=== PATIENT | male | born 1955 | race Caucasian/White ===

== ENCOUNTER → 2019-06-22 | Outpatient (CLI) | payer OTHER ==
--- NOTE | 2019-06-22 16:53 | KCIC ---
MRI of the lumbar spine without contrast 06/22/2019 CLINICAL HISTORY: Low back pain with right leg numbness TECHNIQUE: Unenhanced T1-weighted and T2-weighted sagittal and axial and inversion recovery sagittal images of the lumbar spine were obtained. FINDINGS: Mild S-shaped curvature of the thoracolumbar spine is seen. Degenerative signal changes and loss of height are seen involving all of the disks of the lumbar spine. Degenerative signal changes are seen within the marrow surrounding these discs. The conus medullaris is normal morphology, position, and signal characteristics. At the L1-2 disc space there is a mild generalized disc bulge. Degenerative changes are seen involving the facet joints bilaterally. There is mild ligamentum flavum hypertrophy bilaterally. These findings when combined do not result in significant central spinal canal or neural foraminal stenosis. At the L2-3 disc space there is a mild to moderate generalized disc bulge. Degenerative changes are seen involving the facet joints bilaterally. There are small facet joint effusions bilaterally. There is mild ligamentum flavum hypertrophy bilaterally. These findings when combined result in mild central spinal canal stenosis. Mild left neural foraminal stenosis is seen. The right neural foramen is patent. At the L3-4 disc space there is a mild to moderate generalized disc bulge. Degenerative changes are seen involving the facet joints bilaterally. There are small facet joint effusions bilaterally. There is mild ligamentum flavum hypertrophy bilaterally. These findings when combined result in mild central spinal canal stenosis. Mild to moderate left greater than right neural foraminal stenosis is seen. At the L4-5 disc space there is a mild to moderate generalized disc bulge. This is eccentric to the right. Degenerative changes are seen involving the facet joints bilaterally. There is mild ligamentum flavum hypertrophy bilaterally. These findings when combined do not result in significant central spinal canal stenosis. Moderate to severe right greater than left neural foraminal stenosis is seen. At the L5-S1 disc space there is a mild to moderate generalized disc bulge. Degenerative changes are seen involving the facet joints bilaterally. These findings when combined do not result in significant central spinal canal stenosis. Moderate bilateral neural foraminal stenosis is seen. IMPRESSION: The changes of degenerative disc disease are seen throughout the lumbar spine. These findings result in mild central spinal canal stenosis at L2-3 and L3-4. Mild left neural foraminal stenosis is seen at L2-3. Mild to moderate left greater than right neural foraminal stenosis is seen at L3-4. Moderate bilateral neural foraminal stenosis is seen at L5-S1. Moderate to severe right greater than left neural foraminal stenosis is seen at L4-5. Electronically signed by: Khris Villalobos MD (06/22/2019 4:50 PM) [facility]
== END | disposition home or self-care (01) ==
LOC: KCIC MRI 15:48
PROVIDERS: ATTEND Physician Assistant Medical
DX: M51.36 Other intervertebral disc degeneration, lumbar region (principal); M48.07 Spinal stenosis, lumbosacral region; M51.27 Other intervertebral disc displacement, lumbosacral region; M89.38 Hypertrophy of bone, other site; M25.48 Effusion, other site; M43.8X5 Other specified deforming dorsopathies, thoracolumbar region
CPT/HCPCS: 72148

== ENCOUNTER → 2019-10-28 | Outpatient (CLI) | payer OTHER ==
[~2019-10-28] MED LIST: CELE200C PO; CYCL10TA2 PO; HYDR-2763 PO; SIMV20TA18 PO; TAMS0.4C97 PO
--- NOTE | 2019-10-28 12:51 | PAIN ---
DATE OF SERVICE: 10/28/2019 INITIAL CONSULTATION FOR PAIN CLINIC CHIEF COMPLAINT: Low back and right lower extremity pain. HISTORY OF PRESENT ILLNESS: This is a 64-year-old male, who presents with history of pain for about 9 months, not a result of any specific injury or action he is aware of. The pain in the low back, right lower extremity, posterior gluteus, posterolateral thigh, lateral anterior thigh, anterior medial thigh, medial lower leg and calf on the right side only, radiating into the lower extremity. The patient reports it is worse with walking, standing, changing positions, better with sitting, but does awaken him from sleep frequently. The patient reports he is losing his appetite because of the pain. The pain is described as constant, sharp, stabbing, shooting in the right lower extremity, radiating, tingling with numbness and getting worse with time. The patient has done physical therapy in the past and has been doing exercise stretches and strengthening exercises on his own currently. He has had some chiropractic treatment in the past as well, but nothing recently. The patient is still doing exercises, stretching and using heat applications and reports all he can generally do now is to lie at home with a heating pad on his back and stretch his legs and stretching forward. If he walks even more than 5 minutes, the pain is excruciating, he has to stop because of the radiating pain in the right lower extremity. The patient reports he is not using any assistive devices, but he has to stop frequently and stretch, reaching down to touch his toes with his hands, which will allow him to go a little bit further, but again every few minutes, he has to stop and do this. The patient reports no bowel or bladder incontinence. Rates his disability rating from 0-10, 10 being the worst, is a 10 in all categories, family home responsibilities, recreation, social activity, sexual behavior, occupation, self-care and life support activities. The patient has tried hydrocodone, which does decrease the pain to a moderate extent, but has been out for about 2 months. The patient had MRI scan of the lumbar spine showing degenerative disk disease throughout the lumbar spine with mild central spinal canal stenosis at L2-L3 and L3-L4, [id number] right greater than left neural foraminal stenosis at L4-L5, and moderate bilateral neural foraminal stenosis at L5-S1. The patient reports no loss of motor function, but significant fatigability of the right lower extremity with ambulation. PAST MEDICAL HISTORY: Significant for hearing loss, chemotherapy secondary to bladder cancer in 2014, also surgical resection, history of bradycardia, hyperlipidemia, arthritis. PREVIOUS SURGERIES: Include left inguinal hernia repair, bladder surgery excision in 2014, fractured wrist, right and left knee scopes, ear surgery and left rotator cuff repair as well. CURRENT MEDICATIONS: The patient does not currently take any prescription medications. ALLERGIES: The patient has no known drug allergies. FAMILY HISTORY: Significant for no major medical problems or conditions he is aware of. SOCIAL HISTORY: The patient does not drink alcohol. Does smoke, less than 1 pack a day for the past 30 years. Does not use any illegal, illicit or recreational drugs. He is single. Lives locally in [place], [place]. 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 REVIEW OF SYSTEMS: The patient's review of systems is positive for those items mentioned in history of present illness. All systems reviewed and otherwise negative. It is complete, full and well documented on the patient's chart. PHYSICAL EXAMINATION: VITAL SIGNS: The patient's blood pressure is 150/65, pulse 55, respirations 16, temperature is 97.9 degrees Fahrenheit, height is 6 feet 3 inches and weighs 205 pounds. GENERAL: The patient is awake, alert, oriented, appropriate, has very pleasant demeanor. HEENT: Shows normocephalic, atraumatic. Extraocular movements are intact and symmetrical. Oral cavity has mucous membranes moist and pink. Dentition is intact. NECK: Shows anterior throat supple without palpable lymphadenopathy noted. Swallow reflex symmetrical. CHEST: Shows normal on inspection. Breath sounds are clear bilaterally. HEART: Shows S1, S2 clear. No murmurs auscultated. ABDOMEN: Soft, nontender, nondistended. No palpable organomegaly is noted. No rebound or guarding demonstrated. BACK: Shows spine grossly in the midline. Normal-appearing thoracic kyphosis and lumbar lordotic curvature. Lumbar paraspinous muscle shows symmetrical on inspection, on palpation shows some moderate tenderness diffusely bilaterally, going diffusely without significant radiation. EXTREMITIES: The patient's lower extremities show deep tendon reflexes at 2+ patellar, 1+ tendo-calcaneus tendons are equal. Motor exam is approximately 4 on a scale of 5 dorsiflexion, extension, quadriceps and hamstring flexion on the right, 5/5 on the left. Peripheral pulses are 1+ posterior tibial bilaterally. No peripheral edema is noted bilaterally. Lower extremities are warm and dry to the touch, equal in color and appearance. Straight leg raise noted to be positive on the right at about 35 degrees. Left side is negative. Gaenslen and Deven maneuvers are negative bilaterally. The patient is able to stand, but has some difficulty getting seated from a standing position, he uses the arm of the chair to support himself. He is walking with a significant limping gait favoring the right lower extremity, again not use any assistive devices to ambulate. SKIN: Shows warm and dry, good turgor. No edema. No sores, rashes, or bruising throughout. IMPRESSION: 1. This is a 64-year-old male with approximate 9-month history of increasing pain in low back, right lower extremity in a radicular fashion following in L4-L5 dermatomal distribution on the right side. 2. MRI scan of the lumbar spine as noted. 3. Arthritis. 4. History of bladder cancer. PLAN: Options were discussed with the patient, including conservative medical managements, continued therapies, interventional techniques. He would like to pursue interventional techniques. We discussed a lumbar epidural steroid injection using description as well as anatomical models to describe the procedure. The patient will wait for preauthorization with insurance provider. In the meantime, we will continue doing his physical therapy exercises on his own, heat application, stretching and strengthening exercises and we will give the patient a prescription for hydrocodone 7.5 mg 30 tablets with instructions and side effects to be aware of discussed as well. The patient will follow up; after preauthorization, we will plan on lumbar epidural steroid injection, translaminar approach at the L4-L5 level at that time. KATERINE FREITAS MD DR: CLIVE/scotty JOB#: [id number] / [id number] TETO Valverde
== END | disposition home or self-care (01) ==
LOC: PNCL 10:56
PROVIDERS: ATTEND Anesthesiology
DX: M19.90 Unspecified osteoarthritis, unspecified site (principal); M54.5 Low back pain; Z85.51 Personal history of malignant neoplasm of bladder
CPT/HCPCS: G0463-25

== ENCOUNTER → 2019-11-04 | Outpatient (CLI) | payer OTHER ==
[~2019-11-04] MED LIST changes: +IOHEXOL 180 MG/ML 10 ML VIAL. ONE; +methylPREDNISolone ACETATE 40 MG/ML VIAL. ONE; +methylPREDNISolone ACETATE 80 MG/ML VIAL. ONE
--- NOTE | 2019-11-04 10:48 | PAIN ---
DATE OF SERVICE: 11/04/2019 PROGRESS NOTE FOR PAIN CLINIC DIAGNOSES: Lumbar radiculopathy with lumbar degenerative disk disease. HISTORY OF PRESENT ILLNESS: The patient is a 64-year-old male who returns for followup status post initial evaluation and preauthorization for lumbar epidural steroid injection. The patient reports still significant pain in the low back, right lower extremity as it was previously. No significant changes. The patient reports it is in the posterior gluteus, lateral thigh, anterior thigh, medial thigh, medial lower leg. The patient reports it is 10 on a scale of 10 at its worst over the past week, 10 on average and a 6 at its least and is a 10 today. The patient reports it is stabbing and sharp, unbearable at times, worse with walking, standing, wakes him from sleep about every 6 hours. The patient reports no new motor or sensory deficits, no new bowel or bladder incontinence, still significant pain in the lower extremity on right and in the low back. The patient reports no new changes. PHYSICAL EXAMINATION: VITAL SIGNS: The patient's blood pressure 149/95, pulse is 78, respirations are 18, temperature is 98.0 degrees Fahrenheit, height is 6 feet 3 inches, and weight is 206 pounds. GENERAL: The patient is awake, alert, oriented, appropriate, very pleasant demeanor. HEENT: Shows normocephalic, atraumatic. Extraocular movements are intact and symmetrical. Oral cavity shows mucous membranes moist and pink. Dentition is intact. NECK: Shows anterior throat supple without palpable lymphadenopathy noted. Swallow reflex symmetrical. CHEST: Shows normal on inspection. Breath sounds are clear bilaterally. HEART: Shows S1, S2 clear. ABDOMEN: Soft, nontender, nondistended. No palpable organomegaly is noted. No rebound or guarding demonstrated. BACK: Shows spine grossly in the midline. Normal appearing thoracic kyphosis and lumbar lordotic curvature. Lumbar paraspinous muscle shows symmetrical on inspection, on palpation shows some moderate tenderness diffusely bilaterally going diffusely without significant radiation. The patient has good rotational motion of lumbar spine without difficulty. EXTREMITIES: Lower extremities show deep tendon reflexes 2+ in the patellar, 1+ tendo-calcaneus tendons. Motor exam is approximately 4 on a scale of 5 on the right with dorsiflexion and extension, 5/5 on the left. Peripheral pulses are 1+ posterior tibia. No peripheral edema is noted. Options were discussed with the patient. The patient's old chart was reviewed as his current medication regimen updated. Current review of systems updated today as well. We will proceed with a lumbar epidural steroid injection today with fluoroscopic guidance. Risks were again discussed including, but not limited to bleeding, infection, possibility of epidural hematoma, subsequent neurological compromise, dural puncture, headaches, spinal cord and/or nerve damage, side effects of steroid medication and poor results regarding pain control. The patient understands and wished to proceed. The patient will return to clinic in approximately 2 weeks for followup. He was counseled on return appointment, activity level and side effects to be aware of. PROCEDURE: Lumbar epidural steroid injection under sterile prep and drape using local anesthetic at the L4-L5 level using C-arm fluoroscopic guidance. MEDICATION INJECTED: A total of 120 mg Depo-Medrol plus 10 mL of preservative-free normal saline and 2 mL of contrast. CONDITION AT DISCHARGE: Stable. The patient tolerated the procedure well, had no complications. KATERINE FREITAS MD DR: CLIVE/scotty JOB#: [id number] / [id number]
== END ==
LOC: PNCL 10:04
PROVIDERS: ATTEND Anesthesiology
DX: M51.16 Intervertebral disc disorders with radiculopathy, lumbar region (principal)
CPT/HCPCS: 62323; J1030; J1040; Q9965

== ENCOUNTER → 2019-11-18 | Outpatient (CLI) | payer OTHER ==
[~2019-11-18] MED LIST changes: -IOHEXOL 180 MG/ML 10 ML VIAL. ONE; -methylPREDNISolone ACETATE 40 MG/ML VIAL. ONE; -methylPREDNISolone ACETATE 80 MG/ML VIAL. ONE
--- NOTE | 2019-11-18 13:18 | PAIN ---
DATE OF SERVICE: PROGRESS NOTE FOR PAIN CLINIC DIAGNOSES: Lumbar radiculopathy, lumbar degenerative disk disease. HISTORY OF PRESENT ILLNESS: The patient is a 64-year-old male who returns for followup status post lumbar epidural steroid injection x 1. The patient reports about 75% improvement initially for the first 3 weeks or so. The patient reports the pain has been much decreased and doing quite a bit better over the past few days; however, the pain is beginning to return in the low back and the right lower extremity. The patient reports the sharp pain is completely gone. He is feeling much better from that, but the pain is still radiating into the right lower extremity, mostly in the posterior gluteus, lateral thigh, anterior thigh, medial thigh, medial lower leg and anterior lower leg, some in the calf as well on the right side, worse with walking and standing over the past several days. The patient reports otherwise doing very well with increased distance walking, doing household activities, working activities, traveling with greater ease and comfort, sleeping better at night, still does not awaken her from sleep at night. The patient reports no new motor or sensory deficits, no new bowel or bladder incontinence. Reports the pain is an aching, sharp pain as shooting, but the sharpness has decreased significantly. The patient reported it can be constant with activity and his right leg does still feel weaker than the left with some easy fatigability, but much improved. The patient rates his pain as a 9 on a scale of 10 at its worse in the past week, 8 on average, 7 at its least and is a 7 today. PHYSICAL EXAMINATION: VITAL SIGNS: The patient's blood pressure is 108/60, pulse 75, respirations are 16, temperature 97.7 degrees Fahrenheit, height is 63 inches, weight is 211 pounds. GENERAL: The patient is awake, alert, oriented, appropriate, very pleasant demeanor. HEENT: Shows normocephalic, atraumatic. Extraocular movements are intact and symmetrical. Oral cavity: Mucous membranes moist and pink. Dentition is intact. NECK: Shows anterior throat supple without palpable lymphadenopathy noted. Swallow reflex symmetrical. CHEST: Shows normal on inspection. Breath sounds are clear bilaterally. HEART: Shows S1, S2 clear. No murmurs auscultated. ABDOMEN: Soft, nontender, nondistended. No palpable organomegaly is noted. No rebound or guarding demonstrated. BACK: Shows spine grossly in the midline. Normal appearing thoracic kyphosis and some minor flattening of lumbar lordotic curvature. Lumbar paraspinous muscle shows symmetrical on inspection, on palpation shows some moderate tenderness diffusely bilaterally, only diffusely without significant radiation. The patient has good rotational motion of lumbar spine, both laterally as well as extension and flexion without significant increase in pain. EXTREMITIES: The patient's lower extremities show deep tendon reflexes 2+ in the patellar, 1+ tendo-calcaneus tendons. Motor exam is approximately 4 on a scale of 5 on the right with dorsiflexion and extension, 5/5 on the left. Quadriceps and hamstring flexion, however, is 5/5 and equal bilaterally. Peripheral pulses are 1+ posterior tibia. No peripheral edema is noted bilaterally. Options were discussed with the patient. The patient's old chart was reviewed as his current medication regimen updated. Current review of systems updated today as well. We will proceed with preauthorization for second lumbar epidural steroid injection. The radicular pain is beginning to return at L4-L5 dermatomal distribution on the right and was doing much better. The patient continues to do stretching and strengthening exercises daily, walking daily despite the weakness and pain in the leg, again significantly improved after the first injection for several weeks with the pain returning now in a radicular pattern in the right at L4-L5. We will plan on translaminar lumbar epidural steroid injection at L4-L5 on return. The patient will continue with stretching and strengthening exercises in the meantime. Also, refill the patient's hydrocodone with instructions, side effects to be aware of discussed with the medication. We will also try Medrol Dosepak in the meantime to see if we can keep the pain down while awaiting preauthorization from his insurance provider. The patient will continue with oral anti-inflammatories as needed as well. KATERINE FREITAS MD DR: CLIVE/scotty JOB#: [id number] / [id number]
== END | disposition home or self-care (01) ==
LOC: PNCL 09:57
PROVIDERS: ATTEND Anesthesiology
DX: Z09 Encounter for follow-up examination after completed treatment for conditions other than malignant neoplasm (principal); M51.16 Intervertebral disc disorders with radiculopathy, lumbar region
CPT/HCPCS: G0463

== ENCOUNTER → 2019-11-30 | Outpatient (CLI) | payer OTHER ==
[~2019-11-30] MED LIST changes: +IOHEXOL 180 MG/ML 10 ML VIAL. ONE; +methylPREDNISolone ACETATE 40 MG/ML VIAL. ONE; +methylPREDNISolone ACETATE 80 MG/ML VIAL. ONE
--- NOTE | 2019-11-30 12:37 | PAIN ---
DATE OF SERVICE: 11/30/2019 PROGRESS NOTE FOR PAIN CLINIC DIAGNOSIS: Lumbar radiculopathy with lumbar degenerative disk disease. HISTORY OF PRESENT ILLNESS: The patient is a 64-year-old male who returns for followup status post previous lumbar epidural steroid injection x 1. The patient reports about 50% improvement. The patient reports it is sharp pain, has now gone out of his right leg, but still significant pain in the right leg and low back radiating to posterior gluteus, posterior thigh, lateral thigh, anterior thigh, medial thigh, medial lower leg and some in the calf. The patient reports it is tingling, stabbing, can be sharp at times, can be severe. Initially, he was doing much better with increased distance walking, doing household activities and work activities, standing for greater periods of time, sleeping better at night, but still awakens him from sleep about every 4-6 hours. The patient reports no new motor or sensory deficits, rates his pain as a 9 on a scale of 10 at its worst over the past week, 8 on average, 7 at its least and is an 8 today. The patient reports no new motor or sensory deficits, no new bowel or bladder incontinence or other complaints. PHYSICAL EXAMINATION: VITAL SIGNS: The patient's blood pressure is 135/82, pulse 67, respirations 18, temperature 97.7 degrees Fahrenheit, height is 6 feet 3 inches and weight is 216 pounds. GENERAL: The patient is awake, alert, oriented, appropriate, very pleasant demeanor. HEENT: Shows normocephalic, atraumatic. Extraocular movements are intact and symmetrical. Oral cavity: Mucous membranes moist and pink. Dentition is intact. NECK: Shows anterior throat supple without palpable lymphadenopathy noted. Swallow reflex symmetrical. CHEST: Shows normal on inspection. Breath sounds are clear bilaterally. HEART: Shows S1, S2 clear. No murmurs auscultated. ABDOMEN: Soft, nontender, nondistended. No palpable organomegaly is noted. No rebound or guarding demonstrated. BACK: Shows spine grossly in the midline. Normal appearing thoracic kyphosis and minor flattening of lumbar lordotic curvature. Lumbar paraspinous muscle shows symmetrical on inspection, on palpation shows some moderate tenderness diffusely, but only diffusely without significant radiation. The patient has good rotational motion of lumbar spine, both laterally as well as forward and rearward extension. EXTREMITIES: Lower extremities show deep tendon reflexes 2+ in the patellar tendons. Motor exam is strong with approximately 4 on a scale of 5 on the right ankle, but 5/5, otherwise. Peripheral pulses are 1+ posterior tibial and no peripheral edema is noted bilaterally. Options were discussed with the patient. The patient's old chart was reviewed as his current medication regimen updated. Current review of systems updated today as well and we will proceed with a second in the series of lumbar epidural steroid injection today with fluoroscopic guidance. Risks were discussed including but not limited to bleeding, infection, possibility of epidural hematoma, subsequent neurological compromise, dural puncture, headaches, spinal cord and/or nerve damage, side effects of steroid medication and poor results regarding pain control. The patient understands and wished to proceed. The patient will return to clinic in approximately 2 weeks for followup. He was counseled on return appointment, activity level and side effects to be aware of. DIAGNOSIS: Lumbar radiculopathy with lumbar degenerative disk disease. PROCEDURE: Lumbar epidural steroid injection, translaminar approach at L4-L5 level using C-arm fluoroscopic guidance under sterile prep and drape using local anesthetic. MEDICATION INJECTED: A total of 120 mg Depo-Medrol plus 10 mL preservative-free normal saline and 2 mL of contrast. CONDITION AT DISCHARGE: Stable. The patient tolerated the procedure well, had no complications. KATERINE FREITAS MD DR: CLIVE/scotty JOB#: [id number] / [id number]
== END ==
LOC: PNCL 10:20
PROVIDERS: ATTEND Anesthesiology
DX: M51.16 Intervertebral disc disorders with radiculopathy, lumbar region (principal)
CPT/HCPCS: 62323; J1030; J1040; Q9965

== ENCOUNTER → 2019-12-21 | Outpatient (CLI) | payer OTHER ==
[~2019-12-21] MED LIST changes: -IOHEXOL 180 MG/ML 10 ML VIAL. ONE; -methylPREDNISolone ACETATE 40 MG/ML VIAL. ONE; -methylPREDNISolone ACETATE 80 MG/ML VIAL. ONE
--- NOTE | 2019-12-21 11:04 | PAIN ---
DATE OF SERVICE: 12/21/2019 PROGRESS NOTE FOR PAIN CLINIC DIAGNOSES: Lumbar radiculopathy with lumbar degenerative disk disease. HISTORY OF PRESENT ILLNESS: The patient is a 64-year-old male who returns for followup status post lumbar epidural steroid injection x 2. The patient reports initially he did very well about 75% improvement for several weeks, but the pain is returning now after about 2-1/2 weeks into the right lower extremity, at which point he has more pain in the lateral and anterior aspect of the thigh, but also some in the posterior thigh and lower leg as well. The patient reports it is a 9 on a scale of 10 at all times, worst, least and average over the past week and is a 9 today. The patient reports it is aching and dull, shooting, can be sharp across the back and aching in the back as well with cramping and stabbing pain and is radiating in the right lower extremity to the ankle. The patient reports it is worse with walking, standing, changing positions. The patient relates that he was in a grocery store a few days ago and had to leave his grocery cart because he can no longer stand comfortably and walk comfortably before he finished his shopping. The patient reports it generally awakens him from sleep every 4-5 hours. He can generally reposition and get some decrease in pain most nights. The patient reports no new motor or sensory deficits, no new bowel or bladder incontinence or other complaints. PHYSICAL EXAMINATION: VITAL SIGNS: The patient's blood pressure is 135/80, pulse 76, respirations 18, temperature 99.3 degrees Fahrenheit, height 6 feet 3 inches, weight is 216 pounds. GENERAL: The patient is awake, alert, oriented, appropriate, very pleasant demeanor. HEENT: Shows normocephalic, atraumatic. Extraocular movements are intact and symmetrical. Oral cavity: Mucous membranes moist and pink. Dentition is intact. NECK: Shows anterior throat supple without palpable lymphadenopathy noted. Swallow reflex symmetrical. CHEST: Shows normal on inspection. Breath sounds are clear. No rales, rhonchi or wheezes auscultated. HEART: Shows S1, S2 clear. No murmurs auscultated. ABDOMEN: Soft, nontender, nondistended. BACK: Shows spine grossly in midline. Lumbar paraspinous muscle shows symmetrical on inspection, on palpation shows some moderate tenderness diffusely throughout the upper, middle and lower distribution of paraspinous muscles bilaterally without atrophy or hypertrophy. No tenderness over the spinous processes, sacrum or sacroiliac regions. EXTREMITIES: The patient's lower extremities show deep tendon reflexes 2+ in the patellar, 1+ tendo-calcaneus tendons. Motor exam is 4 on a scale of 5 on the right and 5/5 on the left. Quadriceps and hamstring flexion is 5/5 and symmetrical. Peripheral pulses are 1+ posterior tibia. No peripheral edema bilaterally. Options were discussed with the patient. The patient's old chart was reviewed as his current medication regimen updated. Current review of systems updated today as well. We will proceed with preauthorization for a third in the series of lumbar epidural steroid injection with fluoroscopic guidance. The patient will continue with stretching and strengthening exercises in the meantime. We will plan on a translaminar approach at the L4-L5 level for his clinical right-sided L4-L5 radiculopathy. The patient will maintain stretching and strengthening exercises in the meantime, also was given prescription for Medrol Dosepak with instructions, side effects to be aware of as well as hydrocodone refill with instructions, side effects to be aware of as well. The patient will follow up and we will plan on third lumbar epidural steroid injection on return. KATERINE FREITAS MD DR: CLIVE/scotty JOB#: [id number] / [id number]
== END | disposition home or self-care (01) ==
LOC: PNCL 09:08
PROVIDERS: ATTEND Anesthesiology
DX: M51.16 Intervertebral disc disorders with radiculopathy, lumbar region (principal)
CPT/HCPCS: G0463

== ENCOUNTER → 2020-01-11 | Outpatient (CLI) | payer OTHER ==
[~2020-01-11] MED LIST changes: +IOHEXOL 180 MG/ML 10 ML VIAL. ONE; +methylPREDNISolone ACETATE 40 MG/ML VIAL. ONE; +methylPREDNISolone ACETATE 80 MG/ML VIAL. ONE
--- NOTE | 2020-01-11 10:19 | PDOC ---
Progress Note - Pain Clinic Date of Service: DOS: DATE: 01/11/20 TIME: 10:15 Diagnosis: Dx: Lumbar radiculopathy with lumbar degenerative disc disease History or Present Illness: HPI: 64-year-old male returns for follow-up status post lumbar procedure injection x2. Patient reports about 75% improvement in the low back and right lower extremity for several weeks after the injection but the pain is returning now significantly with a tingling sensation in the in the right lower extremity most in the posterior gluteus lateral thigh anterior thigh medial thigh lateral and medial lower leg patient reports sharp and shooting tingling stabbing unbearable at times rated as a 10 on scale 10 is worse over the past week 9 on average 9 its least is a 9 today. Patient reports no new motor or sensory deficits no new bowel bladder incontinence significant pain with walking standing change positions been waking from sleep at night once again initially was doing much better with walking and doing household activities with greater ease and comfort travel and greater ease and comfort as well. But now the pain is returning as significant in the low back and the right lower extremity. Reports no new motor or sensory deficits no new bowel or bladder concerns or complaints. Physical Exam: VS: Blood pressure 112/70 pulse 83 respirations are 16 temperature 98.1 F height is 6 foot 3 inches weight is 2 2 1 pounds. PE: PHYSICAL EXAMINATION: GENERAL: The patient is awake, alert, oriented, appropriate, very pleasant demeanor HEENT: Shows normocephalic, atraumatic. Extraocular movements are intact and symmetrical. Oral cavity: Mucous membranes moist and pink. Dentition is intact. NECK: Shows anterior throat supple without palpable lymphadenopathy noted. Swallow reflex symmetrical. CHEST: Shows normal on inspection. Breath sounds are clear bilaterally no rales rhonchi or wheezes auscultated. HEART: Shows S1, S2 clear. No murmurs auscultated. ABDOMEN: Soft, nontender, nondistended. No palpable organomegaly is noted. No rebound or guarding demonstrated. BACK: Shows spine grossly in the midline. Normal-appearing cervical lordotic curvature. There is slightly increased thoracic kyphosis, some minor flattening of the lumbar lordotic curvature. Lumbar paraspinous muscles show symmetrical on inspection, on palpation shows some moderate tenderness diffusely throughout the upper, middle and lower distribution of the paraspinous muscles bilaterally and also into the lower thoracic paraspinous musculature, firm and tender, but without specific trigger points, without radiation of pain. The patient has good rotational motion of the lumbar spine, both laterally as well as extension and flexion without significant difficulty. No tenderness over the spinous processes, sacrum or sacroiliac regions. EXTREMITIES: Lower extremities show deep tendon reflexes 2+ in the patellar and tendo calcaneus tendons. Motor exam is 4 on a scale of 5 with right dorsiflexion, extension, quadriceps and hamstring flexion and 5/5 on the left. Peripheral pulses are 1+ posterior tibial. No peripheral edema is noted bilaterally. Lower extremities are warm and dry to touch, equal in color and appearance. Straight leg raise noted to be positive on the right about 40 degrees, left side is negative. Gaenslen's and Deven's maneuvers are negative as well. The patient is able to stand stand on his toes without significant difficulty or loss of balance but does favor the right lower extremity when walking but not use any assistive devices.. SKIN: Shows warm and dry, good turgor. No edema. No sores, rashes or bruising throughout. Options were discussed with the patient. The patient's old chart was reviewed and current medication regimen updated. [] Procedure: Procedure: Options were discussed with the patient. Patient's old chart was uses current medication regimen updated current review of systems updated today as well and we will proceed with a third in the series lumbar epidural steroid ejected today with fluoroscopic guidance. Risks are discussed including but not limited to bleeding infection possibility of epidural hematoma subsequent neurological compromise dural puncture headache spinal cord and or nerve damage side effects steroid medication and portals chronic pain control. Patient understands wished to proceed patient return to clinic in approximately 2 weeks for follow-up was counseled return appointment to level and side effects to be aware. Medication Injected: Med Injected: Procedure is lumbar epidural steroid injection under local anesthetic using sterile prep and drape at the L4-5 level using C-arm fluoroscopic guidance in both AP and lateral views medications injected is120 mg Depo-Medrol + 10 mL pr eservative-free normal saline and 2 mL Isovue for contrast- condition at discharge is stable patient tolerated procedure well had no complications. Condition at Discharge: Condition at Discharge: Condition at discharge stable patient hello procedure well had no complications. We discussed if not significantly improved may repeat MRI scan lumbar spine to better explore the persistent right radiculopathy including potential neurosurgical evaluation if necessary. KATERINE FREITAS MD Jan 11, 2020 10:19
== END | disposition home or self-care (01) ==
LOC: PNCL 09:25
PROVIDERS: ATTEND Anesthesiology
DX: M51.16 Intervertebral disc disorders with radiculopathy, lumbar region (principal); Z79.899 Other long term (current) drug therapy
CPT/HCPCS: 62323; J1030; J1040; Q9965

== ENCOUNTER → 2020-06-09 | Outpatient (CLI) | payer OTHER ==
[~2020-06-09] MED LIST changes: -IOHEXOL 180 MG/ML 10 ML VIAL. ONE; -methylPREDNISolone ACETATE 40 MG/ML VIAL. ONE; -methylPREDNISolone ACETATE 80 MG/ML VIAL. ONE
--- NOTE | 2020-06-09 12:01 | PDOC ---
Progress Note - Pain Clinic Date of Service: DOS: DATE: 06/09/20 TIME: 11:58 Diagnosis: Dx: Lumbar radiculopathy with lumbar degenerative disc disease History or Present Illness: HPI: 64-year-old male returns follow-up status post lumbar injections x3 most recently January 11, 2020. Patient reports about 75% improvement for the first month or so after the injection then the pain returned but not to the intensity that it was previously still much less intense but still returning in the low back and bilateral lower extremities more on the right than the left into the posterior gluteus posterior lateral thigh anterior thigh medial thighs medial lower legs patient reports not traveling to the entire leg at this point but it was previously patient reports initially was doing much better with distance walking doing household activities work activities travel with greater ease and comfort sleeping better at night is pending awakening from sleep over the past few weeks about every 6-7 hours if he lays on his right side. Patient reports his pain is 10 at all times over the past week worst least and average and is an 8 today. Patient continues to do stretching and strengthening exercises daily and taking [id number] anti-inflammatories which help by about 20%. Patient reports no new motor or sensory deficits no new bowel complaints. Physical Exam: VS: Blood pressure is 118/71 pulse 75 respirations 16 temperature 97.8 F height is 6 feet 3 inches weight is 229 pounds PE: PHYSICAL EXAMINATION: GENERAL: The patient is awake, alert, oriented, appropriate, very pleasant demeanor HEENT: Shows normocephalic, atraumatic. Extraocular movements are intact and symmetrical. Oral cavity: Mucous membranes moist and pink. NECK: Shows anterior throat supple without palpable lymphadenopathy noted. Swallow reflex symmetrical. CHEST: Shows normal on inspection. Breath sounds are clear bilaterally, no rales rhonchi or wheezes auscultated. HEART: Shows S1, S2 clear. No murmurs auscultated. ABDOMEN: Soft, nontender, nondistended, obese. No palpable organomegaly is noted. No rebound or guarding demonstrated. BACK: Shows spine grossly in the midline. Normal-appearing cervical lordotic curvature. There is slightly increased thoracic kyphosis, some minor flattening of the lumbar lordotic curvature. Lumbar paraspinous muscles show symmetrical on inspection, on palpation shows some moderate tenderness diffusely throughout the upper, middle and lower distribution of the paraspinous muscles, but without specific trigger points, without radiation of pain. The patient has good rotational motion of the lumbar spine, both laterally as well as extension and flexion without significant difficulty. No tenderness over the spinous processes, sacrum or sacroiliac regions. EXTREMITIES: Lower extremities show deep tendon reflexes 2+ in the patellar and tendo calcaneus tendons. Motor exam is 4 on a scale of 5 with right dorsiflexion, extension, quadriceps and hamstring flexion and 5/5 on the left. Peripheral pulses are 1+ posterior tibial. No peripheral edema is noted bilaterally. Lower extremities are warm and dry to touch, equal in color and appearance. SKIN: Shows warm and dry, good turgor. No edema. No sores, rashes or bruising throughout. Procedure: Procedure: And today inflammatories orally as currently. Patient is also given prescription for Medrol Dosepak with instructions side effects be aware of as well.Options discussed with the patient. Patient chart reviewed his current medication regimen updated current review of systems updated today as well. We will preauthorize patient for a lumbar epidural steroid injection she did very well with these in the past with pain returning in a radicular pattern on the right side in the L4-5 dermatomal distribution. Patient will continue with strengthening stretching exercises. We will have patient return once preauthorization is obtained for translaminar L4-5 lumbar epidural steroid injection at that time. Medication Injected: Med Injected: None Condition at Discharge: Condition at Discharge: Condition at discharge is stable. KATERINE FREITAS MD Jun 09, 2020 12:01
== END | disposition home or self-care (01) ==
LOC: PNCL 11:26
PROVIDERS: ATTEND Anesthesiology
DX: M51.16 Intervertebral disc disorders with radiculopathy, lumbar region (principal); Z79.899 Other long term (current) drug therapy
CPT/HCPCS: G0463

== ENCOUNTER → 2020-06-23 | Outpatient (CLI) | payer OTHER ==
[~2020-06-23] MED LIST changes: +IOHEXOL 180 MG/ML 10 ML VIAL. ONE; +methylPREDNISolone ACETATE 40 MG/ML VIAL. ONE; +methylPREDNISolone ACETATE 80 MG/ML VIAL. ONE
--- NOTE | 2020-06-23 11:44 | PDOC ---
Progress Note - Pain Clinic Date of Service: DOS: DATE: 06/23/20 TIME: 11:41 Diagnosis: Dx: Lumbar radiculopathy with lumbar degenerative disc disease History or Present Illness: HPI: 64-year-old male returns in follow-up status post evaluation and preauthorization for lumbar epidural steroid injection. Patient is obtained that now would like to proceed. Patient reports still significant pain in the low back right greater than left lower extremity posterior gluteus posterior lateral thigh anterior thigh medial thigh medial lower leg into the knees as well as the medial calves. Patient reports pain is a 9 on scale 10 is worse over the past week 8 on average 6 its least is an 8 today patient reports is aching sharp dull and tight alternating the back with radiating shooting pain in the lower extremities again both extremities noted but worse on the right side. Patient reports is worse with walking standing changing position especially trying to sleep at night which awakens him several times through the evening. Patient reports no new motor or sensory deficits no new bowel or bladder incontinence or other complaints. Physical Exam: VS: Blood pressure is 132/72 pulse 56 respirations 18 temperature 97.9 F weight is 230 pounds PE: PHYSICAL EXAMINATION: GENERAL: The patient is awake, alert, oriented, appropriate, very pleasant demeanor HEENT: Shows normocephalic, atraumatic. Extraocular movements are intact and symmetrical. Oral cavity: Mucous membranes moist and pink. NECK: Shows anterior throat supple without palpable lymphadenopathy noted. CHEST: Shows normal on inspection. Breath sounds are clear bilaterally. HEART: Shows S1, S2 clear. No murmurs auscultated. ABDOMEN: Soft, nontender, nondistended, obese. No palpable organomegaly is noted. BACK: Shows spine grossly in the midline. Normal-appearing cervical lordotic curvature. There is slightly increased thoracic kyphosis, some minor flattening of the lumbar lordotic curvature. Lumbar paraspinous muscles show symmetrical on inspection, on palpation shows some moderate tenderness diffusely throughout the upper, middle and lower distribution of the paraspinous muscles, but without specific trigger points, without radiation of pain. The patient has good rotational motion of the lumbar spine, both laterally as well as extension and flexion without significant difficulty. EXTREMITIES: Lower extremities show deep tendon reflexes 2+ in the patellar and tendo calcaneus tendons. Motor exam is 4 on a scale of 5 with right dorsiflexion, extension, quadriceps and hamstring flexion and 5/5 on the left. Peripheral pulses are 1+ posterior tibial. No peripheral edema is noted bilaterally. Lower extremities are warm and dry to touch, equal in color and appearance. SKIN: Shows warm and dry, good turgor. No edema. No sores, rashes or bruising throughout. Procedure: Procedure: Options were discussed with the patient. Patient chart was reviewed his current medication regimen updated current review of systems updated today as well. We will proceed with a lumbar epidural steroid injection as the first in the series today with fluoroscopic guidance. Risks were discussed including but not limited to: Bleeding, infection, possibility of epidural hematoma and subsequent neurological compromise, dural puncture, headaches, spinal cord and/or nerve damage, side effects of steroid medication, and poor results regarding pain control. Patient understands and wished to proceed. Patient will return to the clinic in approximate 2 weeks for follow-up, was counseled as return appointment activity level, and side effects to be aware of. Medication Injected: Med Injected: Procedure is lumbar epidural steroid injection under local anesthetic using sterile prep and drape at the L4-5 level using C-arm fluoroscopic guidance in both AP and lateral views medications injected is 120 mg Depo-Medrol + 10 mL preservative-free normal saline and 2 mL contrast- condition at discharge is st able patient tolerated procedure well had no complications. Condition at Discharge: Condition at Discharge: Condition at discharge stable, patient tolerated procedure well and had no complications. KATERINE FREITAS MD Jun 23, 2020 11:44
--- NOTE | 2020-06-23 11:45 | PDOC4 ---
PROCEDURE Procedure Patient was consented for lumbar epidural steroid injection. Risks were dis cussed including but not limited to: Bleeding, infection, possibility of epidural hematoma and subsequent neurological compromise, dural puncture, headaches, spinal cord and/or nerve damage, side effects of steroid medication, and poor results regarding pain control. Patient understands and wished to proceed. Procedure is lumbar epidural steroid injection under local anesthetic using sterile prep and drape at the L4-5 level using C-arm fluoroscopic guidance in both AP and lateral views medications injected is 120 mg Depo-Medrol + 10 mL preservative-free normal saline and 2 mL contrast- condition at discharge is stable patient tolerated procedure well had no complications. KATERINE FREITAS MD Jun 23, 2020 11:45
== END | disposition home or self-care (01) ==
LOC: PNCL 11:02
PROVIDERS: ATTEND Anesthesiology
DX: M51.16 Intervertebral disc disorders with radiculopathy, lumbar region (principal); Z79.899 Other long term (current) drug therapy
CPT/HCPCS: 62323; J1030; J1040; Q9965

== ENCOUNTER 2020-11-21 20:21 | Inpatient (IN) | payer OTHER ==
[~2020-11-21] VITALS: Ht 193 cm; Wt 102.0 kg
[2020-11-21 19:54] VITALS: BP 148/83
[~2020-11-21 20:21] MED LIST changes: -IOHEXOL 180 MG/ML 10 ML VIAL. ONE; -methylPREDNISolone ACETATE 40 MG/ML VIAL. ONE; -methylPREDNISolone ACETATE 80 MG/ML VIAL. ONE
[2020-11-21] MEDS ORDERED: HYDROmorphone 2 MG/ML VIAL IVP PRN (20:45)
[2020-11-21] MEDS: IV NORMAL SALINE 1000ML BAG 1,000 ML IV SCH (20:53)
[2020-11-21] MEDS ORDERED: CALCIUM CARBONATE 500 MG TAB.CHEW PO PRN (21:00)
[2020-11-21] MEDS ORDERED: BISACODYL 10 MG SUPP.RECT. PR PRN (21:00)
[2020-11-21] MEDS ORDERED: CYCLOBENZAPRINE 10 MG TABLET. PO SCH (21:00)
[2020-11-21] MEDS ORDERED: MAG HYDROX/ALUMINUM HYD/SIMETH 30 ML ORAL.SUSP PO PRN (21:00)
[2020-11-21] MEDS ORDERED: ACETAMINOPHEN 325 MG TABLET. PO PRN (21:00)
[2020-11-21] MEDS ORDERED: MAGNESIUM HYDROXIDE 2,400 MG/30 ML ORAL.SUSP. PO PRN (21:00)
--- NOTE | 2020-11-21 21:29 | NUR ---
Admit via EMS from [facility] ER for c/o abd pain. A/O x 4 on arrival. Pleasant. Talkative. Ambulated from gurney in [place] to bed in room with steady gait. Rates abd pain 09/10. Down from 03/12. Orientated to room and call light. Reviewed POC to include Pain Management, NPO and Surgical Consult. Verbalized understanding. Resting in bed. Watching TV. Call light at hand.
[2020-11-21] MEDS: HEPARIN for SUB-Q USE 5,000 UNIT/ML VIAL. SQ SCH (21:58)
[2020-11-21 22:44] VITALS: BP 142/71
[2020-11-21] MEDS: PIPERACILLIN/TAZOBACTAM 3.375 GM in IV NORMAL SALINE 50ML 50 ML IV SCH (23:14)
[2020-11-22 02:28] VITALS: BP 127/70
[2020-11-22] MEDS: PIPERACILLIN/TAZOBACTAM 3.375 GM in IV NORMAL SALINE 50ML 50 ML IV SCH ×2 (05:41→11:38)
[2020-11-22] MEDS: HEPARIN for SUB-Q USE 5,000 UNIT/ML VIAL. SQ SCH (05:48)
[2020-11-22] MEDS: IV NORMAL SALINE 1000ML BAG 1,000 ML IV SCH (06:45)
[2020-11-22 07:00] VITALS: BP 125/65
--- NOTE | 2020-11-22 07:08 | PDOC1 ---
History and Physical Date of Admission Date of Admission DATE: 11/22/20 TIME: 07:01 Identification/Chief Complaint Chief Complaint Abdominal pain Source Source: Patient History of Present Illness History of Present Illness Mr Knott is a 65-year-old male with a past medical history of bladder cancer s/p resection who presents to the ED at [facility] ED in [place], [place] accompanied with his sister Bren c/o sudden onset suprapubic abdominal pain, nausea and vomiting for the 3 hours leading up to ED visit late on 11/21/2020. Pain radiates into his suprapubic area. He does note over the last 3 days he has been urinating up with 15 times per day recently. CT abdomen pelvis with enlarged appendix 7 mm with adjacent fat stranding as well as multiple urinary bladder masses particularly in the right side, with the largest in the right posterior bladder base measures up to 5.9 x 2.8 cm. Wbc 9.2, Hb 16.6, platelets 237, NA 139 K4.2, BUN 21 1.2, glucose 24, lactate 1 lipase 130 4T is within normal laboratory limits, urinalysis bland. 06/25/2013 - treated by Dr. Angelito Porter for transitional cell carcinoma of the bladder with bladder biopsy, transurethral resection of bladder tumor, and instillation of mitomycin-C. Previously had a large low-grade bladder tumor resected and was found to have a small re-occurrence of what was to be low-grade as well in a similar location to his previous occurrence. Had a hernia repair in 2013 with no adverse events. Transferred to [facility] for further care with general surgery consultation. Past Medical History Renal/: Bladder Ca. (S/p resection 2013 for transitional cell ca) Past Surgical History Past Surgical History: Hernia Repair, Other (TURP, bladder tumor removal) Family History Family History: Cancer (Prostate - brother) Social History Smoke: No ALCOHOL: none Drugs: None Current Medications Current Medications Current Medications Sodium Chloride 1,000 ml @ 100 mls/hr Q10H IV Last administered on 11/21/20at 20:53; Start 11/21/20 at 20:45 Piperacillin Sod/ Tazobactam Sod 3.375 gm/Sodium Chloride 50 ml @ 100 mls/hr Q6HRS IV Last administered on 11/22/20at 05:41; Start 11/22/20 at 00:00 Hydromorphone HCl (Dilaudid) 2 mg PRN Q4HRS PRN IVP PAIN Last administered on 11/21/20at 23:50; Start 11/21/20 at 20:45 Cyclobenzaprine HCl (Flexeril) 10 mg QHS PO Last administered on 11/21/20at 21:55; Start 11/21/20 at 21:00 Al Hydroxide/Mg Hydroxide (Mylanta Plus Xs) 30 ml PRN Q3HRS PRN PO HEARTBURN / GAS; Start 11/21/20 at 21:00 Calcium Carbonate/ Glycine (Tums) 500 mg PRN Q3HRS PRN PO UPSET STOMACH; Start 11/21/20 at 21:00 Acetaminophen (Tylenol) 650 mg PRN Q6HRS PRN PO Headaches, Temp > 101.5F; Start 11/21/20 at 21:00 Magnesium Hydroxide (Milk Of Magnesia) 2,400 mg PRN Q12HR PRN PO CONSTIPATION 1ST CHOICE; Start 11/21/20 at 21:00 Bisacodyl (Dulcolax Supp) 10 mg PRN DAILY PRN [place] CONSTIPATION 2ND CHOICE; Start 11/21/20 at 21:00 Heparin Sodium (Porcine) (Heparin Sodium) 5,000 unit Q8HRS SQ Last administered on 11/22/20at 05:48; Start 11/21/20 at 22:00 Lorazepam (Ativan Inj) 2 mg PRN Q4HRS PRN IVP ANXIETY / AGITATION; Start 11/21/20 at 21:15 Active Scripts Active Reported Hydrocodone-Acetamin 7.5-325 (Hydrocodone/Acetaminophen) 1 Each Tablet 1 Each PO PRN Cyclobenzaprine Hcl 10 Mg Tablet 1 Tab PO QHS Allergies Allergies: Coded Allergies: No Known Drug Allergies (Unverified , 10/28/19) ROS General: No: Chills, Night Sweats, Fatigue, Malaise, Appetite, Other PSYCHOLOGICAL ROS: No: Anxiety, Behavioral Disorder, Concentration difficultie, Decreased libido, Depression, Disorientation, Hallucinations, Hostility, Irritablity, Memory difficulties, Mood Swings, Obsessive thoughts, Physical abuse, Sexual abuse, Sleep disturbances, Suicidal ideation, Other Eyes: No Blurry vision, No Decreased vision, No Double vision, No Dry eyes, No Excessive tearing, No Eye Pain, No Itchy Eyes, No Loss of vision, No Photophobia, No Scotomata, No Uses contacts, No Uses glasses, No Other HEENT: No: Heacaches, Visual Changes, Hearing change, Nasal congestion, Nasal discharge, Oral lesions, Sinus pain, Sore Throat, Epistaxis, Sneezing, Snoring, Tinnitus, Vertigo, Vocal changes, Other ALLERGY AND IMMUNOLOGY: No: Hives, Insect Bite Sensitivity, Itchy/Watery Eyes, Nasal Congestion, Post Nasal Drip, Seasonal Allergies, Other Hematological and Lymphatic: No: Bleeding Problems, Blood Clots, Blood Transfusions, Brusing, Night Sweats, Pallor, Swollen Lymph Nodes, Other ENDOCRINE: No: Breast Changes, Galactorrhea, Hair Pattern Changes, Hot Flashes, Malaise/lethargy, Mood Swings, Palpitations, Polydipsia/polyuria, Skin Changes, Temperature Intolerance, Unexpected Weight Changes, Other Breast: No New/Changing Breast Lumps, No Nipple changes, No Nipple discharge, No Other Respiratory: No: Cough, Hemoptysis, Orthopnea, Pleuritic Pain, Shortness of breath, SOB with excertion, Sputum Changes, Stridor, Tachypnea, Wheezing, Other Cardiovascular: No Chest Pain, No Palpitations, No Orthopnea, No Paroxysmal Noc. Dyspnea, No Edema, No Lt Headedness, No Other Gastrointestinal: Yes Nausea, Yes Vomiting, Yes Abdominal Pain; No Diarrhea, No Constipation, No Melena, No Hematochezia, No Other Genitourinary: No Dysuria, No Frequency, No Incontinence, No Hematuria, No Retention, No Discharge, No Urgency, No Pain, No Flank Pain, No Other, No , No , No , No , No , No , No Musculoskeletal: No Gait Disturbance, No Joint Pain, No Joint Stiffness, No Joint Swelling, No Muscle Pain, No Muscular Weakness, No Pain In:, No Swelling In:, No Other Neurological: No Behavorial Changes, No Bowel/Bladder ControlChng, No Confusion, No Dizziness, No Gait Disturbance, No Headaches, No Impaired Coord/balance, No Memory Loss, No Numbness/Tingling, No Seizures, No Speech Problems, No Tremors, No Visual Changes, No Weakness, No Other Skin: No Dry Skin, No Eczema, No Hair Changes, No Lumps, No Mole Changes, No Mottling, No Nail Changes, No Pruritus, No Rash, No Skin Lesion Changes, No Other, No Acne Physical Exam General: Alert, Oriented X3, Cooperative, No acute distress HEENT: Atraumatic, PERRLA, EOMI, Mucous membr. moist/pink Lungs: Clear to auscultation, Normal air movement Heart: S1S2, RRR, no thrills, no rubs, no gallops, no murmurs Abdomen: Normal bowel sounds, Soft, No tenderness, No hepatosplenomegaly, No masses Rectal Exam: not examined Extremities: No clubbing, No cyanosis, No edema, Normal pulses, No tenderne ss/swelling Skin: No rashes, No breakdown, No significant lesion Neuro: Normal gait, Normal speech, Strength at 5/5 X4 ext, Normal tone, Sensation intact, Cranial nerves 3-12 NL, Reflexes 2+ Psych/Mental Status: Mental status NL, Mood NL Vitals Vitals Vital Signs Date Time Temp Pulse Resp B/P (MAP) Pulse Ox O2 Delivery O2 Flow Rate FiO2 11/22/20 02:28 98.2 54 18 127/70 (89) 90 Room Air 98.[address] abdomen/pelvis with IV contrast: LOWER CHEST: Dependent subsegmental atelectasis in bibasilar lungs. ABDOMEN/PELVIS: Normal morphology and size of the liver with homogeneous enhancement. Subcentimeter hypodensity in the right hepatic lobe, too small to characterize. Phrygian cap. No cholelithiasis or significant evidence of acute cholecystitis. No biliary ductal dilation. Unremarkable spleen and pancreas. Nodular thickening of the left adrenal gland without discrete nodule. Right adrenal gland is normal. No hydronephrosis or nephrolithiasis in either kidney. No bowel obstruction or wall thickening. Borderline thickened appendix tip with adjacent fat stranding, measures 7 mm in diameter (series 3 image 69). Colonic diverticulosis without diverticulitis. No bowel dilation. Moderate aortoiliac atherosclerotic calcifications without significant narrowing. Mesenteric arteries and portal vein are patent. No pneumoperitoneum or ascites. No abdominopelvic lymphadenopathy by size criteria. Multiple urinary bladder masses particularly in the right side, with the largest in the right posterior bladder base measures up to 5.9 x 2.8 cm. Punctate calcifications in the prostate. MUSCULOSKELETAL: Small fat-containing umbilical hernia. No acute osseous process or suspicious lesion. Multilevel degenerative changes in the spine. IMPRESSION: 1. Appendix extends to the mid lower abdomen with borderline thickened tip and adjacent subtle fat stranding. Finding may represent early/mild acute uncomplicated appendicitis. Clinical correlation is advised. 2. Multiple bladder masses, compatible with known history of bladder malignancy. 3. Other chronic/incidental findings, as described above. VTE Prophylaxis Ordered VTE Prophylaxis Devices: Yes VTE Pharmacological Prophylaxi: Yes Assessment/Plan Assessment/Plan A/P: Lower abdominal pain -more likely due to urinary retention and bladder masses and acute appendicitis. Will discuss with general surgery. IV Zosyn. If taking p.o. okay may be able to transition to p.o. Augmentin for the next week. Would need urgent outpatient follow-up with urology he would like a new uro logist. General surgery as discussed with Dr. Adrian at [facility] Nausea & vomiting - likely due to some urinary retention, improved with urination, IV antiemetics Bladder cancer - appears to have a recurrence. 06/25/2013 - treated by Dr. Brad Porter for transitional cell carcinoma of the bladder with bladder biopsy, transurethral resection of bladder tumor, and instillation of mitomycin-C. Previously had a large low-grade bladder tumor resected and was found to have a small re-occurrence of what was to be low-grade as well in a similar location to his previous occurrence. Spinal stenosis - stable FEN - NPO PPX - lovenox FULL CODE Dispo - inpatient Justifications for Admission Other Justification Appendicitis PRASHANTH ROBERSON MD Nov 22, 2020 07:08
--- NOTE | 2020-11-22 10:02 | PDOC2 ---
TOYINADORE Esme [employer] OFFICE ASSISTANT 11/22/20 1002: CONSULT Date of Consult Date of Consult DATE: 11/22/20 TIME: 09:58 Reason for Consult Reason for Consult: possible appendicitis Referring Physician Referring Physician: ER Identification/Chief Complaint Chief Complaint abdominal pain Source Source: Chart review, Patient History of Present Illness Reason for Visit: Reports acute onset lower abdominal pain, suprapubic, vomiting yesterday. Now resolved hx of bladder cancer, 2 surgeries in past for tumor removal unaware of reoccurrence as found on CT Past Medical History Heme/Onc: Cancer (bladder ) Past Surgical History Past Surgical History: Other (bladder tumor removal ) Family History Family History: Other (noncontributory to current illness ) Social History <1 pack per day ALCOHOL: occassional Drugs: None Lives: Alone Current Medications Current Medications Current Medications Sodium Chloride 1,000 ml @ 100 mls/hr Q10H IV Last administered on 11/22/20at 06:45; Start 11/21/20 at 20:45 Piperacillin Sod/ Tazobactam Sod 3.375 gm/Sodium Chloride 50 ml @ 100 mls/hr Q6HRS IV Last administered on 11/22/20at 05:41; Start 11/22/20 at 00:00 Hydromorphone HCl (Dilaudid) 2 mg PRN Q4HRS PRN IVP PAIN Last administered on 11/21/20at 23:50; Start 11/21/20 at 20:45 Cyclobenzaprine HCl (Flexeril) 10 mg QHS PO Last administered on 11/21/20at 21:55; Start 11/21/20 at 21:00 Al Hydroxide/Mg Hydroxide (Mylanta Plus Xs) 30 ml PRN Q3HRS PRN PO HEARTBURN / GAS; Start 11/21/20 at 21:00 Calcium Carbonate/ Glycine (Tums) 500 mg PRN Q3HRS PRN PO UPSET STOMACH; Start 11/21/20 at 21:00 Acetaminophen (Tylenol) 650 mg PRN Q6HRS PRN PO Headaches, Temp > 101.5F; Start 11/21/20 at 21:00 Magnesium Hydroxide (Milk Of Magnesia) 2,400 mg PRN Q12HR PRN PO CONSTIPATION 1ST CHOICE; Start 11/21/20 at 21:00 Bisacodyl (Dulcolax Supp) 10 mg PRN DAILY PRN [place] CONSTIPATION 2ND CHOICE; Start 11/21/20 at 21:00 Heparin Sodium (Porcine) (Heparin Sodium) 5,000 unit Q8HRS SQ Last administered on 11/22/20at 05:48; Start 11/21/20 at 22:00 Lorazepam (Ativan Inj) 2 mg PRN Q4HRS PRN IVP ANXIETY / AGITATION; Start 11/21/20 at 21:15 Active Scripts Active Reported Hydrocodone-Acetamin 7.5-325 (Hydrocodone/Acetaminophen) 1 Each Tablet 1 Each PO PRN Cyclobenzaprine Hcl 10 Mg Tablet 1 Tab PO QHS Allergies Allergies: Coded Allergies: No Known Drug Allergies (Unverified , 10/28/19) ROS General: No: Chills, Other (fevers ) PSYCHOLOGICAL ROS: No: Anxiety, Depression Eyes: No Blurry vision, No Double vision HEENT: No: Heacaches, Sore Throat Hematological and Lymphatic: No: Bleeding Problems, Blood Clots Respiratory: No: Cough, Shortness of breath Cardiovascular: No Chest Pain Gastrointestinal: Yes Other (see hpi) Genitourinary: YES Dysuria, YES Retention Musculoskeletal: No Joint Pain, No Muscle Pain Neurological: No Impaired Coord/balance, No Memory Loss Skin: No Pruritus, No Rash Physical Exam General: Alert, Oriented X3, Cooperative HEENT: Atraumatic, PERRLA Lungs: Clear to auscultation, Normal air movement Heart: Regular rate, Normal S1, Normal S2 Abdomen: Soft, No tenderness Extremities: No clubbing, No cyanosis Skin: No rashes, No breakdown Neuro: Normal gait, Normal speech Psych/Mental Status: Mental status NL, Mood NL MUSCULOSKELETAL: No deformity, No swelling Vitals VITALS Vital Signs Date Time Temp Pulse Resp B/P (MAP) Pulse Ox O2 Delivery O2 Flow Rate FiO2 11/22/20 08:00 Room Air 11/22/20 07:00 97.7 55 18 125/65 (85) 92 97.7 Assessment/Plan Assessment/Plan possible appendicitis, exam benign, wbc 9 ct with multiple bladder masses would rec abx, supportive care, urology FU reviewed with BAO Silva MD 11/22/20 1231: CONSULT Assessment/Plan Assessment/Plan Pt seen and examined. Agree with Ms. Deal's note d/w urology, d/w hospitalist d/w pt and pt's supportive sister Pt abd pain resolved abd NTTP low suspicion of appendicitis OK for d/c on abx and f/u with urology. Thanks for consult! ADORE DEAL APRN Nov 22, 2020 10:02 BAO DOVER MD Nov 22, 2020 12:31
[2020-11-22 11:00] VITALS: BP 141/85
--- NOTE | 2020-11-22 11:51 | NUR ---
SS following for discharge planning. SS reviewed pt chart and discussed with pt RN. Pt is from home and is currently on room air. Pt on IV Zosyn. PT/OT recommended home independent. Surgery consulted. SS will continue to follow for discharge planning.
[2020-11-22] MEDS ORDERED: ONDA4TAB7 PO (12:13)
[2020-11-22] MEDS ORDERED: TRAM50TA PO (12:13)
[2020-11-22] MEDS ORDERED: AMOX1TAB11 PO (12:13)
--- NOTE | 2020-11-22 13:13 | PDOC3 ---
Discharge Summary Visit Information Date of Admission: Nov 21, 2020 Date of Discharge: Nov 22, 2020 Admitting Diagnosis: Nausea and vomiting Final Diagnosis Bladder mass, appendicitis Brief Hospital Course Allergies Allergies Coded Allergies Type Severity Reaction Last Updated Verified No Known Drug Allergies 10/28/19 No Vital Signs Vital Signs Date Time Temp Pulse Resp B/P (MAP) Pulse Ox O2 Delivery O2 Flow Rate FiO2 11/22/20 11:00 97.9 55 18 141/85 (103) 91 Room Air 97.9 Brief Hospital Course Mr Knott is a 65-year-old male with a past medical history of bladder cancer s/p resection who presents to the ED at [facility] ED in [place], [place] accompanied with his sister Bren c/o sudden onset suprapubic abdominal pain, nausea and vomiting for the 3 hours leading up to ED visit late on 11/21/2020. Pain radiates into his suprapubic area. He does note over the last 3 days he has been urinating up with 15 times per day recently. CT abdomen pelvis with enlarged appendix 7 mm with adjacent fat stranding as well as multiple urinary bladder masses particularly in the right side, with the largest in the right posterior bladder base measures up to 5.9 x 2.8 cm. Wbc 9.2, Hb 16.6, platelets 237, NA 139 K4.2, BUN 21 1.2, glucose 24, lactate 1 lipase 130 4T is within normal laboratory limits, urinalysis bland. 06/25/2013 - treated by Dr. Angelito Porter for transitional cell carcinoma of the bladder with bladder biopsy, transurethral resection of bladder tumor, and instillation of mitomycin-C. Previously had a large low-grade bladder tumor resected and was found to have a small re-occurrence of what was to be low-grade as well in a similar location to his previous occurrence. Had a hernia repair in 2013 with no adverse events. Transferred to [facility] for further care with general surgery consultation. Improved with IV morphine, IV Zofran and then transition to p.o. Zofran in his home p.o. hydrocodone. Given IV Zosyn for 3 doses then transition to oral Augmentin with no adverse effects After discussion with general surgery opted for conservative treatment with antibiotics. Tolerated p.o. well no further nausea and vomiting able to urinate without obstruction. Given recurrence of bladder mass he was given referral to outpatient urology and would prefer a local urologist this time. Dr. Adiran - [facility] [address] [place] [address] Problem list: Lower abdominal pain -more likely due to urinary retention and bladder masses and acute appendicitis. Will discuss with general surgery. IV Zosyn. If taking p.o. okay may be able to transition to p.o. Augmentin for the next week. Would need urgent outpatient follow-up with urology he would like a new urologist. General surgery as discussed with Dr. Adrian at [facility] Nausea & vomiting - likely due to some urinary retention, improved with urination, IV antiemetics Bladder cancer - appears to have a recurrence. 06/25/2013 - treated by Dr. Angelito Porter for transitional cell carcinoma of the bladder with bladder biopsy, transurethral resection of bladder tumor, and instillation of mitomycin-C. Previously had a large low-grade bladder tumor resected and was found to have a small re-occurrence of what was to be low-grade as well in a similar location to his previous occurrence. Spinal stenosis - stable Consults: General surgery Greater than 75 minutes spent on same day admit and d/c Discharge Information Condition at Discharge: Improved Follow Up: Weeks (1) Disposition/Orders: D/C to Home Scheduled Amoxicillin/Potassium Clav (Amox Tr-K Clv 875-125 Mg Tab) 1 Each Tablet, 1 TAB PO BID for Appendicitis for 7 Days, #14 Prescribed by: PRASHANTH ROBERSON MD on 11/22/20 1213 Cyclobenzaprine Hcl (Cyclobenzaprine Hcl) 10 Mg Tablet, 1 TAB PO QHS for spasms, #30 (Reported) Entered as Reported by: BEN CHOW on 10/28/19 1451 Last Action: Continued on 11/21/202056 by TIERA MEDINA MD Hydrocodone/Acetaminophen (Hydrocodone-Acetamin 7.5-325) 1 Each Tablet, 1 EACH PO PRN for pain, (Reported) Entered as Reported by: BEN CHOW on 10/28/19 1451 Last Action: Reviewed on 11/21/202127 by SKIP ALBA Ondansetron Hcl (Zofran) 4 Mg Tablet, 1 TAB PO Q6HRS for Nausea/vomiting for 20 Days, #80 Prescribed by: PRASHANTH ROBERSON MD on 11/22/20 1213 Scheduled PRN Tramadol Hcl (Tramadol Hcl) 50 Mg Tablet, 50 MG PO PRN Q6HRS PRN for PAIN for 6 Days, #15 Prescribed by: PRASHANTH ROBERSON MD on 11/22/20 1214 Justicifation of Admission Dx: Justifications for Admission: Justification of Admission Dx: Yes PRASHANTH ROBERSON MD Nov 22, 2020 13:12
--- NOTE | 2020-11-22 13:42 | EKG ---
[facility] [address] [place] [address] Test Date: 2020-11-22 Test Time: 08:29:02 Pat Name: AI MENDOSA Department: Room: 211 1 Gender: M Irrigation Flume Layer: RHONA : 1955 Requested By: PRASHANTH ROBERSON Order Number: [id number] Reading MD: Measurements Intervals [place] Rate: 51 P: 39 RI: 186 QRS: 14 QRSD: 94 T: 26 QT: 482 QTc: 446 Interpretive Statements SINUS RHYTHM R-S TRANSITION ZONE IN V LEADS DISPLACED TO THE RIGHT INCOMPLETE RIGHT BUNDLE BRANCH BLOCK NO SPECIFIC ECG ABNORMALITIES RI6.02 No previous ECG available for comparison
--- NOTE | 2020-11-22 14:26 | NUR ---
Discharge Note: AI MENDOSA Discharge instructions and discharge home medications reviewed with Patient and a copy given. All questions have been answered and understanding verbalized. The following instructions and handouts were given: Appendicitis, abdominal pain, amoxicillin, Zofran. Patient discharged to home with self care via sister and private vehicle. IV out, monitor off and placed at nursing station.
[2020-11-22] MEDS ORDERED: AMOXICILLIN/K CLAV 875/125MG TABLET. PO SCH (21:00)
== END 2020-11-22 14:24 | disposition home or self-care (01) | DRG 699 ==
LOC: 2 NORTH 20:21
PROVIDERS: ADMIT Family Medicine; ATTEND Family Medicine
DX: N32.9 Bladder disorder, unspecified (principal); K35.80 Unspecified acute appendicitis; R33.9 Retention of urine, unspecified; M48.00 Spinal stenosis, site unspecified; F17.210 Nicotine dependence, cigarettes, uncomplicated; Z85.51 Personal history of malignant neoplasm of bladder
CPT/HCPCS: 93005; J1170; J1644; J2543; J7030; G0378